=== PATIENT | male | born 1960 | race Hispanic/Latino ===

== ENCOUNTER 2021-07-12 08:46 | Emergency (ER) | payer BC ==
[~2021-07-12] VITALS: Ht 165.1 cm; Wt 75.0 kg
[~2021-07-12 08:46] MED LIST: ASPIRIN EC81 MG PO; ATORVASTATIN CA80 MG PO; CLOPIDOGREL75 MG PO; LEVOTHYROXIN50 MCG PO; METFORMIN500 MG PO; METOPROL TAR25 MG PO; SIMVASTATIN10 MG PO; VITAMIN D31000 UNI1 PO
[2021-07-12 10:41] VITALS: BP 141/78
[2021-07-12] MEDS ORDERED: XARELTO20 MG PO (10:55)
[2021-07-12] MEDS ORDERED: XARELTO15 MG PO (10:55)
== END 2021-07-12 11:03 | disposition home or self-care (01) | DRG 301 ==
LOC: ED 08:46
DX: I82.621 Acute embolism and thrombosis of deep veins of right upper extremity (principal)

== ENCOUNTER 2022-09-03 09:09 | Observation (INO) | payer OTHER ==
[~2022-09-03] VITALS: Ht 165.1 cm; Wt 80.0 kg
[2022-09-03] VITALS (16 sets, daily range): BP systolic 111–140; BP diastolic 62–87
[~2022-09-03 09:09] MED LIST changes: +XARELTO15 MG PO; +XARELTO20 MG PO
--- NOTE | 2022-09-03 09:14 | NUR ---
PT TO ROOM VIA WHEELCHAIR
[2022-09-03] MEDS ORDERED: LOSARTAN POTASS25 MG PO (09:38)
[2022-09-03] MEDS ORDERED: BRILINTA90 MG PO ×2 (09:38→17:18)
[2022-09-03] MEDS ORDERED: JANUVIA100 MG PO (09:43)
[2022-09-03 10:22] LABS: BASO% 0.6 % (0-3); HEMATOCRIT 39.2 % (39.0-50.0); IMMATURE GRANULOCYTES 0.6 % (0.0-5.0); LYMPH% 22.6 % (15-41); MEAN CELL VOLUME 89.1 fL CALC (80.0-100.0); MEAN CORPUSCULAR HGB 29.3 pG CALC (26.0-32.0); MEAN CORPUSCULAR HGB CONC 32.9 g/dL CAL (32.0-36.0); MONO% 7.7 % (2-13); NEUT# 4.91 thou/uL (1.82-7.42); NEUT% 67.5 % (42-76); RED BLOOD COUNT 4.4 mill/uL (4.70-6.10); RED CELL DISTRI WIDTH 12.2 % (11.5-15.5)
[2022-09-03 10:24] LABS: HEMOGLOBIN 12.9 g/dl (14.0-18.0)
[2022-09-03 10:25] LABS: ALBUMIN 4.2 g/dL (3.2-5.0); ALKALINE PHOSPHATASE 111 u/l (38-126); ANION GAP 14 (6-22 (CALC)); BILIRUBIN, TOTAL 0.9 mg/dL (0.2-1.3); BUN 13 mg/dL (8-23); BUN/CREATININE RATIO 16 (12-20 (CALC)); CARBON DIOXIDE 21 mmol/l (22-30); CHLORIDE 108 mmol/l (95-108); CREATININE 0.8 mg/dL (0.7-1.3); GFR FOR AFR.AMER. > 60 ML/MIN (>=60 (CALC)); GFR OTHER RACES > 60 ML/MIN (>=60 (CALC)); LIPASE 74 u/l (23-300); POTASSIUM 4.6 mmol/l (3.5-5.1); SGOT/AST 27 u/l (19-48); SODIUM 138 mmol/l (137-146); TOTAL PROTEIN 7.3 g/dL (6.3-8.2)
--- NOTE | 2022-09-03 10:29 | NUR ---
PATIENT RESTING IN BED. FAMILY AT BEDSIDE.
--- NOTE | 2022-09-03 11:27 | NUR ---
PATIENT RESTING IN BED. FAMILY AT BEDSIDE.
--- NOTE | 2022-09-03 12:27 | NUR ---
patient educated on plan of care, he is resting in bed. no acute distress
--- NOTE | 2022-09-03 12:58 | NUR ---
awaiting bed on med surg for admission
--- NOTE | 2022-09-03 13:30 | NUR ---
PT ARRIVED TO MED SURG FROM ER VIA W/C. PT IS ALERT AND ORIENTED X3, PT HAS NO C/O PAIN AT THIS TIME. PT HAS TELE ON BOX # 10 ALL LEADS ATTACHED. IV SITE #20 RAC CLEAN AND INTACT WITH NS @ 150 ML/HR INFUSING. PT SKIN CLEAN AND INTACT. PT ORIENTED TO AND CALL LIGHT. PT HAS CALL LIGHT WITHIN REACH AND ALL SAFETY MEASURES IN PLACE AT THIS TIME.
--- NOTE | 2022-09-03 13:41 | NUR ---
bedside report given to nadia, patient belongings sent with patient, family at bedside
--- NOTE | 2022-09-03 16:00 | NUR ---
IV NS 100 ML/H INFUSING PER DR. KEEN ORDER. PROTONIX 10 ML/HR INFUSING. PT HAS NO CHANGE IN STATUS. PT HAS NO C/O PAIN AT THIS TIME.
--- NOTE | 2022-09-03 16:37 | NUR ---
PTS GLUCOSE WAS 140 @1637. NURSE NOTIFIED.
[2022-09-03] MEDS ORDERED: METOPROLOL TAR100 MG PO (17:19)
[2022-09-03 18:29] LABS: HEMATOCRIT 38.2 % (39.0-50.0); HEMOGLOBIN 12.6 g/dl (14.0-18.0)
--- NOTE | 2022-09-03 19:07 | NUR ---
REPORT RECEIVED FROM Layla STRINGER LPN
[2022-09-04 00:18] VITALS: BP 140/76
--- NOTE | 2022-09-04 00:40 | NUR ---
PATIENT RESTING COMFORTABLY, CALL LIGHT AND BEDSIDE TABLE WITHIN REACH. AT BEDSIDE. PATIENT REPORTS NORMAL BM, DENIES ANY TARRY STOOLS. NEW PROTONIX BAG HUNG AND STARTED.
[2022-09-04 00:44] LABS: HEMATOCRIT 37.8 % (39.0-50.0); HEMOGLOBIN 12.5 g/dl (14.0-18.0)
--- NOTE | 2022-09-04 04:30 | NUR ---
LAB AT BEDSIDE OBTAINING MORNING LABS.
[2022-09-04 04:41] VITALS: BP 108/62
[2022-09-04 05:54] LABS: HEMATOCRIT 36.3 % (39.0-50.0)
[2022-09-04 06:26] VITALS: BP 130/71
[2022-09-04 06:51] VITALS: BP 130/71
--- NOTE | 2022-09-04 08:00 | NUR ---
PT IN BED WITH HOB UP EATING BREAKFAST; ALERT AND ORIENTED. PT HAS NO C/O PAIN AT THIS TIME. PT HAS TELE ON WITH ALL LEADS ATTACHED. IV SITE TO RAC CLEAN AND INTACT WITH NS AND PROTONIX DRIP @ 10 ML/HR INFUSING. PT ANBULATES WELL TO THE BATHROOM FOR TOILETING NEEDS. PT HAS CALL LIGHT WIHTIN REACH AND ALL SAFETY MEASURES IN PLACE AT THIS TIME.
[2022-09-04 10:43] VITALS: BP 139/75
[2022-09-04 10:48] VITALS: BP 162/69
--- NOTE | 2022-09-04 12:00 | NUR ---
PT SITTING UP ON SIDE OF BED , EATING LUNCH. ALERT AND ORIENTED X 3. PT HAS NO C/O PAIN . PT HAS NO CHANGE IN STATUS AT THIS TIME.
[2022-09-04] MEDS ORDERED: PROTONIX40 MG PO (12:03)
[2022-09-04 12:05] LABS: HEMATOCRIT 37.8 % (39.0-50.0); HEMOGLOBIN 12.4 g/dl (14.0-18.0)
--- NOTE | 2022-09-04 13:40 | NUR ---
Discharge instructions given. Patient verbalizes understanding of same. Discharged in stable condition via Wheelchair to Home with family. All belongings sent with pt.
== END 2022-09-04 13:38 | disposition home or self-care (01) | DRG 379 ==
LOC: ED 09:09 → MS2 12:04
PROVIDERS: Family Medicine; ADMIT Internal Medicine; ATTEND Internal Medicine
DX: K92.1 Melena (principal); I10 Essential (primary) hypertension; E11.9 Type 2 diabetes mellitus without complications; I25.10 Atherosclerotic heart disease of native coronary artery without angina pectoris; E03.9 Hypothyroidism, unspecified; E78.5 Hyperlipidemia, unspecified; Z86.718 Personal history of other venous thrombosis and embolism; Z79.84 Long term (current) use of oral hypoglycemic drugs; Z95.5 Presence of coronary angioplasty implant and graft; Z79.82 Long term (current) use of aspirin; Z79.02 Long term (current) use of antithrombotics/antiplatelets
CPT/HCPCS: Q9967; S0164